=== PATIENT | male | born 1970 | race Caucasian/White ===

== ENCOUNTER 2020-11-21 16:26 | Inpatient (IN) | payer OTHER, MEDICAID, SELFPAY ==
[~2020-11-21] VITALS: Ht 170.2 cm; Wt 77.1 kg
--- NOTE | 2020-11-21 16:26 | NUR ---
pt [facility]EN [facility] bed [facility]
--- NOTE | 2020-11-21 16:30 | NUR ---
ASSUMED CARE OF A 50/M FROM EMS FOR A SYNCOPE AT HOME. PT IS A DIALYSIS PT (T, , ) PT REPORTS BUILD UP OF "FLUID IN HIS STOMACH" REPORTS PARACENTESIS BEING PERFORMED 2 DAYS AGO WITH APPROX 1 L OF FLUID REMOVED, BUT DENIES HX OF LIVER CHIRROSIS. PENDING MSE.
[2020-11-21 16:33] VITALS: BP 93/44
[2020-11-21] MEDS ORDERED: NACL 0.9% 1,000 ML IV ONE (16:50)
--- NOTE | 2020-11-21 16:50 | NUR ---
LABS DRAWN VIA IV PLACED BY PREHOSPITAL STAFF. GIVEN TO LAB.
--- NOTE | 2020-11-21 16:52 | NUR ---
[facility] [phone]
--- NOTE | 2020-11-21 17:00 | NUR ---
RAD AT BEDSIDE.
[2020-11-21 17:07] LABS: BASOPHILS # (AUTO) 0.1 K/uL (0.00-0.22); BASOPHILS % (AUTO) 1.4 % (0.0-2.0); EOSINOPHILS # (AUTO) 0.4 K/uL (0-0.4); EOSINOPHILS % (AUTO) 4.2 % (0.0-4.0); HEMATOCRIT 32.5 % (36-52); HEMOGLOBIN 9.9 g/dL (12.0-18.0); LYMPHOCYTES # (AUTO) 2.2 K/uL (2.0-11.5); LYMPHOCYTES % (AUTO) 25.7 % (20.5-51.1); MEAN CORPUSCULAR HEMOGLOBIN 29 pg (27-31); MEAN CORPUSCULAR HGB CONC 31 g/dL (33-37); MEAN CORPUSCULAR VOLUME 95.8 fL (80-94); MONOCYTES # (AUTO) 0.8 K/uL (0.8-1.0); MONOCYTES % (AUTO) 9.2 % (1.7-9.3); NEUTROPHILS # (AUTO) 5.1 K/uL (1.8-7.7); NEUTROPHILS % (AUTO) 59.5 % (42.2-75.2); PLATELET COUNT (AUTO) 359 K/uL (140-450); RED CELL DISTRIBUTION WIDTH 19.6 % (11.6-13.7); WHITE BLOOD COUNT (AUTO) 8.5 K/uL (4.8-10.8)
[2020-11-21 17:09] LABS: ANION GAP 15.3 (8-16); CARBON DIOXIDE 25.9 mmol/L (21-32); POTASSIUM 5.2 mmol/L (3.5-5.1)
[2020-11-21 17:13] LABS: CREATININE 5.1 mg/dL (0.6-1.3)
[2020-11-21 17:37] LABS: PHOSPHORUS 5.4 mg/dL (2.5-4.9)
[2020-11-21 17:38] LABS: TOTAL BILIRUBIN 0.4 mg/dL (0.0-1.0)
[2020-11-21] MEDS ORDERED: FUROSEMIDE 40 MG/4 ML VIAL IVP ONE (18:20)
--- NOTE | 2020-11-21 18:43 | NUR ---
PT UNABLE TO RECALL HOME MEDS -- CALL MADE TO FAMILY, FAMILY WILL BRING MEDS TOMORROW AM.
[2020-11-21] MEDS ORDERED: ASPIRIN 81 MG TAB.CHEW PO ONE (19:05)
--- NOTE | 2020-11-21 19:05 | NUR ---
DAUGHTER -- JENNIFER [phone]
--- NOTE | 2020-11-21 19:12 | NUR ---
REPORT GIVEN TO RASHAD YUN. ALL CARE TRANSFERED.
[2020-11-21] MEDS ORDERED: hePARIN / DEXT 5% PREMIX 250 ML IV PRN (19:30)
[2020-11-21] MEDS ORDERED: HEPARIN PER PHARMACY MC PRN ×2 (19:30)
[2020-11-21 19:47] LABS: PROTHROMBIN TIME 11.5 secs (10.8-13.4)
[2020-11-21] MEDS ORDERED: POTASSIUM CHLORIDE 10 MEQ TABER PO PRN (20:00)
[2020-11-21] MEDS ORDERED: ZOLPIDEM 5 MG TAB PO PRN (20:00)
[2020-11-21] MEDS ORDERED: ONDANSETRON 4 MG/2 ML VIAL IM/IVP PRN (20:00)
[2020-11-21] MEDS ORDERED: ACETAMINOPHEN 325 MG TAB PO PRN (20:00)
[2020-11-21] MEDS ORDERED: DOCUSATE SODIUM 100 MG GELCAP PO PRN (20:00)
[2020-11-21] MEDS ORDERED: HYDROcodone/APAP 7.5/325 MG 1 TAB PO PRN (20:00)
[2020-11-21] MEDS ORDERED: guaiFENesin DM 200/20 MG-10 ML 10 ML UDC PO PRN (20:00)
--- NOTE | 2020-11-21 20:40 | NUR ---
READY FOR ADMISSION. REPORT CALLED TO RASHAD KRAMER
--- NOTE | 2020-11-21 20:55 | NUR ---
Patient will be admitted to care of DR. ROLDAN. Will go to room 114 ATTACHED TO SOCIAL SERVICES DESIGNEE. Belongings list completed. Report to
[2020-11-21 21:03] LABS: CHOL/HDL RATIO 3.4 (1-4.5); FREE T4 (FREE THYROXINE) 0.97 ng/dL (0.76-1.46); THYROID STIMULATING HORMONE 9.04 uIU/mL (0.34-3.74)
[2020-11-21 21:15] VITALS: BP 85/70
--- NOTE | 2020-11-21 21:15 | NUR ---
RECEIVED PATIENT FROM ED RNJAMA AT APPROXIMATELY 5. PATIENT ARRIVED TO [facility] FLOOR VIA GURNEY/BED, ALERT AND ORIENTED X4 TO PERSON, PLACE, TIME AND EVENT. PATIENT ON NC 4LPM, DENIES SOB AND NO RESPIRATORY DISTRESS OBSERVED, OXYGEN SATURATION 100%. PATIENT HEART SOUNDS AUSCULTATED, S1/S2 HEARD, LUNG CLEAR EQUAL BILATERAL ,SLIGHTLY DIMINISHED IN THE BASES. NORMOACTIVE BOWEL SOUNDS AUSCULTATED IN ALL 4 QUADRANTS, NPO EXCEPT MEDICATION PER MD ORDER. PATIENT IV SITES INCLUDE RIGHT AC 20G AND RIGHT SIDE CHEST ODALIS CATH FOR DIALYSIS. PATIENT DIALYSIS DAYS ARE T, TH, AND SAT. NO IV DRIPS RUNNING AT TIME OF ARRIVAL. PATIENT ABLE TO USE BEDSIDE URINAL/RESTROOM NEEDS IN BED WITH RN ASSISTANCE. PATIENT OLIGURIC, STATED HE DOESN'T USUALLY URINATE TOO MUCH. PATIENT STATED HAVING REGULAR AND DAILY BOWEL MOVEMENTS. PATIENT SKINS NON INTACT, BILATERAL LOWER EXTREMITY LEG SWELLING, BILATERAL COMPLETE TOE AMPUTATIONS S/P SURGERY X1 DAY PER PATIENT, AND PATIENT STATED TO HAVING PARTIAL PENIAL AMPUTATION DUE TO GANGRENE IN REGARDS TO PREVIOUS MEDICAL HISTORY. PATIENT BEING OFFLOADED FROM PRESSURE POINTS WITH USE OF PILLOWS, FREQUENT REPOSITIONING AND PLACED INTO A POSITION OF COMFORT. BED LOCKED AND LOWERED INTO A POSITION OF SAFETY, EDUCATED BEAUTY CULTURE TEACHER LIGHT USAGE AND FAMILIARIZED WITH THE ROOM LAYOUT. PROMOTED A RESTFUL ENVIRONMENT WITH DECREASED STIMULI. WILL CONTINUE TO CLOSELY MONITOR, REASSESS OFTEN AND FREQUENTLY ROUND.
[2020-11-21] MEDS: hePARIN / DEXT 5% PREMIX 250 ML IV PRN (21:54)
[2020-11-21 22:00] VITALS: BP 80/54
--- NOTE | 2020-11-21 22:30 | NUR ---
PAGED DR. ROLDAN TO UPDATE WITH PATIENT STATUS, NOTIFIED OF DIALYSIS STATUS, STRICT I/O'S, LOW BP 80/54, INCREASED TROPONIN 8.5 AND SLIGHTLY INCREASED POTASSIUM 5.2. DR ROLDAN RETURNED PAGE, STATED TO GIVE 1 LITER BOLUS IVF AND BEGIN TRANSFER TO ICU STATUS. DR. ROLDAN ALSO GAVE ORDER FOR PRN LEVOPHED AND FOR THE ER DOCTOR TO START CENTRAL LINE. DR. ROLDAN ALSO ADVISED TO CONTACT DR. OSIEL ROBLES FOR FURTHER TELEPHONE CONSULT. DR. ROLDAN ALSO ADVISED DR. PIMENTEL IS THE AIR CONDITIONING TECHNICIAN ASSIGNED. WILL CARRY OUT ORDERS.
--- NOTE | 2020-11-21 22:40 | NUR ---
CHARGE NURSE AND VASCULAR SONOGRAPHER ADVISED OF PATIENT CONDITION/STATUS, ORDERS RECIEVED FROM MD'S AND LEVEL OF CARE INCREASE TO ICU STATUS PER DR. ROLDAN.
[2020-11-21 23:00] VITALS: BP 102/39
--- NOTE | 2020-11-21 23:00 | NUR ---
WOUND PICTURES TAKEN AND PLACED IN CHART, WOUND ASSESSMENT DOCUMENTED, SEE WOUND NOTES.
--- NOTE | 2020-11-21 23:10 | NUR ---
DR. OSIEL ROBLES CONTACTED REGARDING PATIENT CONDITION, GIVEN UPDATE ON STATUS AND ORDERS CURRENTLY RECEIVED BY DR. ROLDAN. MD STATED TO CHECK IF PATIENT CURRENTLY TAKING ANY CARDIAC MEDICATIONS SUCH MOLINA INHIBITORS OR BETA BLOCKERS, CHECKED WITH PATIENT AND DAUGHTER, BOTH DENY ANY CARDIAC MEDICATIONS BEING TAKEN AT HOME. PATIENT STATED HE ONLY TAKES NORCO FOR PAIN AT HOME, PER PATIENT LAST NORCO TAKEN AT HOME IN THE MORNING WITH BREAKFAST. DR. ROBLES GAVE NO NEW ORDERS AT THIS TIME AND UPDATED, SAID TO CONTINUE CURRENT THERAPIES IN PLACE FROM DR. ROLDAN'S ORDERS FOR THE PATIENT. WILL UPDATE MD WITH ANY CHANGES IN CONDITION.
--- NOTE | 2020-11-21 23:11 | NUR ---
DR. OSIEL ROBLES NOTIFIED OF TROPONIN 8.506, HEPARIN THERAPY CURRENTLY RUNNING AND ALL OTHER ORDERS PLACED BY DR. ROLDAN THUS FAR.
--- NOTE | 2020-11-21 23:15 | NUR ---
DR. VALDERRAMA ADVISED OF CENTRAL LINE ORDER/PLACEMENT PER DR. ROLDAN.
--- NOTE | 2020-11-21 23:35 | NUR ---
Spoke with ER MD Dr Marin for central line placement. Dr Marin stated that he will go to [facility] for central line placement
--- NOTE | 2020-11-21 23:41 | NUR ---
Texted Dr Guevara for ICU product safety engineer. Dr Guevara texted back for having Dr Padilla as ICU product safety engineer
--- NOTE | 2020-11-21 23:48 | NUR ---
Texted Dr Padilla for ICU canteen attendant consult. Dr Padilla texted back to text Dr Hodges because Dr Padilla is not oncall [facility]
--- NOTE | 2020-11-21 23:52 | NUR ---
Texted Dr Hodges regarding ICU model and mold maker consult. Dr Hodges stated that he will come in am because he stated that pt is stable at this time (BP 103/42, map 81, aaox4, 4L N/C)
[2020-11-22] VITALS (22 sets, daily range): BP systolic 90–160; BP diastolic 32–107
[2020-11-22] MEDS ORDERED: NOREPINEPHRINE 16 MG in DEXTROSE 5% 250 ML IV PRN (00:05)
[2020-11-22] MEDS ORDERED: NACL 0.9% 1,000 ML IV SCH (00:05)
--- NOTE | 2020-11-22 00:05 | NUR ---
Dr Tania EDWARDS MD came to insert central line, stated that pt does not need central line at this time because BP is103/42, map 81 after 500ml bolus per Dr Guevara order. Dr Marin stated just wait in am or unless pt is not stable tonight, he will insert central line. Also, Dr Marin stated that patient needs PICC line instead of central line in am
--- NOTE | 2020-11-22 01:15 | NUR ---
PATIENT RESTING A POSITION OF COMFORT, DENIES PAIN/DISCOMFORT WHEN ASKED, NO OBVIOUS SIGNS OF DISTRESS OBSERVED WHILE AT BEDSIDE, TOLERATING CURRENT THERAPIES IN PLACE WELL.. WILL REASSESS OFTEN, CLOSELY MONITOR AND FREQUENTLY ROUND.
--- NOTE | 2020-11-22 02:34 | NUR ---
PATIENT RESTING, ASLEEP, NO OBVIOUS SIGNS OF DISTRESS OBSERVED AT BEDSIDE. PATIENT TOLERATING CURRENT THERAPIES WELL. WILL CONTINUE TO REASSESS OFTEN, CLOSELY MONITOR AND FREQUENTLY ROUND.
--- NOTE | 2020-11-22 04:11 | NUR ---
WOUND CARE, DRESSINGS CHANGED, GOWN CHANGED, LINENS, REPOSITIONING, SAFETY CHECKS, AND HYGIENE PROVIDED. NO OBVIOUS SIGNS OF DISTRESS OBSERVED WHILE AT BEDSIDE. WILL CONTINUE TO REASSESS OFTEN, CLOSELY MONITOR AND FREQUENTLY ROUND.
--- NOTE | 2020-11-22 05:52 | NUR ---
Texted PICC RN ([phone]) for PICC insertion order
--- NOTE | 2020-11-22 06:02 | NUR ---
PATIENT ALERT IN THE BED, REPOSITIONED, NO COMPLAINTS OF PAIN, DENIES ANY DISCOMFORT WHEN ASKED. PATIENT CONTINUES TO TOLERATE THERAPIES WELL, NO SIGNS OF DISTRESS OBSERVED WHILE AT BEDSIDE, WILL CONTINUE TO REASSESS OFTEN, CLOSELY MONITOR AND FREQUENTLY ROUND.
[2020-11-22 06:54] LABS: ANION GAP 14.5 (8-16); CARBON DIOXIDE 24.6 mmol/L (21-32)
[2020-11-22 07:01] LABS: CREATININE 5.6 mg/dL (0.6-1.3); POTASSIUM 6.1 mmol/L (3.5-5.1)
--- NOTE | 2020-11-22 07:20 | NUR ---
RECEIVED PATIENT FROM [facility] AND REPORT FROM LENS BLOCKER NURSE. PATIENT ARRIVED IN [facility] BED, AWAKE AND ALERT, ABLE TO MAKE NEEDS KNOWN, DENIES CHEST PAIN. BREATHING EVEN AND UNLABORED ON 4L NC, NO SIGNS OF ACUTE DISTRESS NOTED. BLE WOUNDS FROM TOE AMPUTATIONS. R CHEST ODALIS CATHETER ACCESS, R AC 20G INFUSING HEPARIN DRIP @ 9000 UNITS/HR. MAKING LINE WORKER IN PLACE, SAFETY MEASURES IN PLACE.
--- NOTE | 2020-11-22 07:20 | NUR ---
PATIENT REPORT AND CARE ENDORSED TO INA SOLORZANO.
[2020-11-22 07:24] LABS: BASOPHILS # (AUTO) 0.1 K/uL (0.00-0.22); BASOPHILS % (AUTO) 1.4 % (0.0-2.0); EOSINOPHILS # (AUTO) 0.3 K/uL (0-0.4); EOSINOPHILS % (AUTO) 2.8 % (0.0-4.0); HEMATOCRIT 32.2 % (36-52); HEMOGLOBIN 9.9 g/dL (12.0-18.0); LYMPHOCYTES # (AUTO) 2.4 K/uL (2.0-11.5); LYMPHOCYTES % (AUTO) 26.4 % (20.5-51.1); MEAN CORPUSCULAR HEMOGLOBIN 29 pg (27-31); MEAN CORPUSCULAR HGB CONC 31 g/dL (33-37); MEAN CORPUSCULAR VOLUME 94.9 fL (80-94); MONOCYTES # (AUTO) 0.8 K/uL (0.8-1.0); MONOCYTES % (AUTO) 9.1 % (1.7-9.3); NEUTROPHILS # (AUTO) 5.5 K/uL (1.8-7.7); NEUTROPHILS % (AUTO) 60.3 % (42.2-75.2); PLATELET COUNT (AUTO) 324 K/uL (140-450); RED BLOOD CELL COUNT(AUTO) 3.39 MIL/uL (4.20-6.10); RED CELL DISTRIBUTION WIDTH 19.1 % (11.6-13.7); WHITE BLOOD COUNT (AUTO) 9.1 K/uL (4.8-10.8)
[2020-11-22] MEDS: ATORVASTATIN 80 MG TAB PO SCH (08:04)
[2020-11-22] MEDS: ECOTRIN 81 MG TABEC PO SCH (08:04)
[2020-11-22] MEDS: PANTOPRAZOLE 40 MG TABEC PO SCH (08:04)
--- NOTE | 2020-11-22 08:05 | NUR ---
ADMINISTERED SCHEDULED MEDS PER MD ORDER. MED EDUCATION PROVIDED, PATIENT VERBALIZES UNDERSTANDING.
--- NOTE | 2020-11-22 08:57 | NUR ---
PATIENT HAS BEEN SCREENED AND CATEGORIZED HIGH NUTRITION RISK. PATIENT WILL BE SEEN WITHIN 1-2 DAYS OF ADMISSION. 11/21/2020-11/22/[address]
[2020-11-22] MEDS ORDERED: CALCIUM GLUCONATE 10% 1,000 MG in NACL 0.9% 50 ML IV SCH (09:30)
--- NOTE | 2020-11-22 10:27 | NUR ---
P.T. NOTES HOLD P.T. EVAL, ELEV TROP=14.623 (11/22/20), =8.506 (11/21/20); FF UP WHEN ABLE.
--- NOTE | 2020-11-22 13:35 | NUR ---
FOLLOW UP CALL MADE TO PICC RN -- ELIAS TO UPDATED ICU WITH ANTICIPATED ETA FOR PICC INSERTION.
--- NOTE | 2020-11-22 13:49 | NUR ---
11/22/20 RD INITIAL ASSESSMENT COMPLETED PLEASE REFER TO NUTRITION ASSESSMENT UNDER CARE ACTIVITY FOR ESTIMATED NUTRITIONAL NEEDS. RD RECOMMENDATIONS: 1. CONTINUE NPO MEDICALLY APPROPRIATE. 2. IF/WHEN PT IS MEDICALLY STABLE TO START DIET, RECOMMEND RENAL DIET. 3. RD WILL F/U 2-3 DAYS; HIGH RISK. DORON RODRIGUEZ, RD
--- NOTE | 2020-11-22 19:30 | NUR ---
RECEIVED CARE AND REPORT FROM DAYSHIFT RN. PATIENT ALERT AND ORIENTED X4 TO PERSON, PLACE, TIME AND EVENT. PATIENT GCS 15, ABLE TO ANSWER ALL QUESTIONS APPROPRIATELY. PATIENT CURRENTLY ON RENAL DIET ORDERS PER MD. PATIENT HOB 30 DEGREES, ROOM AIR, OXYGEN SATURATION 98% ON THE MONITOR, DENIES SOB AND DENIES ANY DIFFICULTY BREATHING. PATIENT CONNECTED TO CONTINUOUS CARDIAC MONITORING AT BEDSIDE, NSR ON THE MONITOR, WILL CONTINUE TO CLOSELY MONITOR. PATIENT IV SITE INCLUDES RIGHT AC 20G. DRIPS CURRENTLY RUNNING INCLUDE HEPARIN RUNNING AT 1400 UNITS/HR. PATIENT DRY WEIGHT APPROXIMATELY 74.3 KG. PATIENT HAS A RIGHT CHEST ODALIS CATHETER IN PLACE FOR REGULAR DIALYSIS, PATIENT RECEIVES DIALYSIS T, , SAT. PATIENT HAD DIALYSIS TODAY, 2 L TOTAL REMOVED. PATIENT AMBULATORY WITH RN ASSISTANCE, ABLE TO USE BEDSIDE COMMODE. PATIENT OLIGURIC. PATIENT SKINS NON INTACT, LEFT AND RIGHT FOOT COMPLETE TOE AMPUTATIONS, RIGHT FOOT OPEN WOUND, LEFT FOOT CLOSED WOUND, ALL WOUNDS COVERED WITH CLEAN DRESSINGS. BED LOCKED AND LOWERED INTO A POSITION OF SAFETY, PATIENT ASSISTED WITH REPOSITIONING, AND PLACED INTO A POSITION OF COMFORT. WILL CONTINUE TO REASSESS OFTEN, CLOSELY MONITOR AND FREQUENTLY ROUND THROUGHOUT THE SHIFT.
--- NOTE | 2020-11-22 19:44 | NUR ---
PICC LINE NURSE AT BEDSIDE.
--- NOTE | 2020-11-22 19:51 | NUR ---
XRAY CALLED TO BEDSIDE, PER PICC LINE RN, TO CHECK PICC LINE PLACEMENT, AWAITING ARRIVAL.
--- NOTE | 2020-11-22 20:10 | NUR ---
PER PICC LINE RN, CANCEL XRAY TO BEDSIDE, XRAY CALLED.
--- NOTE | 2020-11-22 20:15 | NUR ---
PER ELIAS, PICC LINE RN, RIGHT UPPER ARM MIDLINE PLACED, INTACT, STATED OK TO USE.
--- NOTE | 2020-11-22 21:28 | NUR ---
PATIENT HAD 1 BM, SOFT, FORMED, BROWN AND MODERATE. RN ASSISTANCE AT BEDSIDE, CLEANED, DRIED. NO SIGNS OF DISTRESS OBSERVED WHILE AT BEDSIDE/ASSISTING PATIENT. WILL CONTINUE TO REASSESS OFTEN, CLOSELY MONITOR AND FREQUENTLY ROUND.
[2020-11-22] MEDS: hePARIN / DEXT 5% PREMIX 250 ML IV PRN (21:46)
--- NOTE | 2020-11-22 23:40 | NUR ---
MECHANICAL EXPERT SPOKE WITH DR. ROLDAN ON TELEPHONE, STATED TO MECHANICAL EXPERT THAT PATIENT CAN BE DOWNGRADED TO TELE STATUS.
--- NOTE | 2020-11-22 23:50 | NUR ---
LAB RESULT, PTT 48.9, NO CHANGE IN DRIP RATE PER PROTOCOL, PTT ORDERED Q6, WILL CONTINUE TO CLOSELY MONITOR AND FREQUENTLY ROUND.
[2020-11-23] VITALS (8 sets, daily range): BP systolic 103–133; BP diastolic 45–98
--- NOTE | 2020-11-23 01:12 | NUR ---
PATIENT RESTING, SLEEPING IN A POSITION OF COMFORT. ASSISTED INTO A POSITION OF COMFORT. PRESSURE POINTS OFFLOADED WITH USE OF PILLOWS. NO SIGNS OF DISTRESS OBSERVED. HOB 30 DEGREES, AIRWAY OPEN, CLEAR AND MAINTAINABLE. WILL CONTINUE TO REASSESS OFTEN, CLOSELY MONITOR AND FREQUENTLY ROUND.
--- NOTE | 2020-11-23 03:03 | NUR ---
PATIENT AWAKE, ALERT AND ORIENTED X4, ASSISTED INTO A POSITION OF COMFORT WITH REPOSITIONING, HR 78, OXYGEN SATURATION 98% ON ROOM AIR, DENIES SOB, DENIES DIFFICULTY BREATHING, DENIES ANY DISCOMFORT WHEN ASKED. PATIENT STATED HE IS FEELING FINE. AIRWAY REMAINS PATENT, OPEN, CLEAR AND MAINTAINABLE, HOB 30 DEGREES, NO OBVIOUS SIGNS OF DISTRESS OBSERVED WHILE AT BEDSIDE. PATIENT ASSISTED WITH HYGIENE AND COMFORT. WILL CONTINUE TO REASSESS OFTEN, CLOSELY MONITOR AND FREQUENTLY ROUND.
--- NOTE | 2020-11-23 05:08 | NUR ---
PATIENT OFFERED AND ASSISTED WITH MORNING CARE/HYGIENE AND ADL'S, RESTING IN A POSITION OF COMFORT, NO SIGNS OF DISTRESS OBSERVED WHILE AT BEDSIDE, HR 71 AND OXYGEN SATURATION 100%, AIRWAY PATENT, CLEAR AND MAINTAINABLE. WILL CONTINUE TO REASSESS OFTEN, CLOSELY MONITOR AND FREQUENTLY ROUND.
[2020-11-23 05:30] LABS: BASOPHILS # (AUTO) 0.1 K/uL (0.00-0.22); BASOPHILS % (AUTO) 1.4 % (0.0-2.0); EOSINOPHILS # (AUTO) 0.3 K/uL (0-0.4); EOSINOPHILS % (AUTO) 4.2 % (0.0-4.0); HEMATOCRIT 32.5 % (36-52); LYMPHOCYTES # (AUTO) 1.6 K/uL (2.0-11.5); LYMPHOCYTES % (AUTO) 20.2 % (20.5-51.1); MEAN CORPUSCULAR HEMOGLOBIN 30 pg (27-31); MEAN CORPUSCULAR HGB CONC 31 g/dL (33-37); MEAN CORPUSCULAR VOLUME 95.5 fL (80-94); MONOCYTES # (AUTO) 0.6 K/uL (0.8-1.0); MONOCYTES % (AUTO) 7.5 % (1.7-9.3); NEUTROPHILS # (AUTO) 5.5 K/uL (1.8-7.7); NEUTROPHILS % (AUTO) 66.7 % (42.2-75.2); PLATELET COUNT (AUTO) 380 K/uL (140-450); RED CELL DISTRIBUTION WIDTH 19.3 % (11.6-13.7); WHITE BLOOD COUNT (AUTO) 8.2 K/uL (4.8-10.8)
[2020-11-23 05:45] LABS: ANION GAP 12.5 (8-16); CARBON DIOXIDE 26.9 mmol/L (21-32); POTASSIUM 4.4 mmol/L (3.5-5.1)
[2020-11-23 06:00] LABS: CREATININE 4.7 mg/dL (0.6-1.3)
--- NOTE | 2020-11-23 06:15 | NUR ---
TRANSFERRED PATIENT TO TELE UNIT, PATIENT STABLE CONDITION, DENIES PAIN, DENIES SOB, DENIES ANY DISCOMFORT WHEN ASKED. AIRWAY OPEN, CLEAR, AND MAINTAINABLE. OXYGEN SATURATION 98% ON ROOM AIR, HR 82, ON THE MONITOR. VS STABLE, CARE ENDORSED TO WARRANTY ADMINISTRATOR.
--- NOTE | 2020-11-23 07:30 | NUR ---
RECEIVED BEDSIDE REPORT FROM NIGHT RN. PT AWAKE IN BED, HOB ELEVATED. AOX4, ABLE TO MAKE NEEDS KNOWN. CURRENTLY ON HEMODIALYSIS ORDERED. NO C/O PAIN, RESPIRATIONS ARE EVEN AND UNLABORED ON RA. SKIN WARM AND DRY TO TOUCH. ROSITA MIDLINE RUNNING HEPARIN 1400U/HR. RIGHT UPPER CHEST ODALIS CATH INTACT. PLAN OF CARE DISCUSSED. SAFETY MEASURES IN PLACE. BED IN LOW POSITION. WILL CONTINUE TO MONITOR
[2020-11-23 08:06] LABS: T4 (THYROXINE) 7.1 ug/dL (4.5-12.0)
[2020-11-23] MEDS ORDERED: VIT-B COMP/VIT-C/FOLIC ACID 1 TAB PO SCH (09:00)
[2020-11-23] MEDS: ATORVASTATIN 80 MG TAB PO SCH (09:07)
[2020-11-23] MEDS: PANTOPRAZOLE 40 MG TABEC PO SCH (09:07)
[2020-11-23] MEDS: ECOTRIN 81 MG TABEC PO SCH (09:07)
--- NOTE | 2020-11-23 09:45 | NUR ---
HD DONE. NO ADVERSE REACTIONS. VSS
--- NOTE | 2020-11-23 10:15 | NUR ---
PT DISCUSSED WITH DR ROLDAN AT BEDSIDE ABOUT GOING AMA. PER PT, HE WANTS TO GO AMA SO SEE HIS SICK FATHER. RISKS OF LEAVING THE HOSPITAL AND BENEFITS OF TREATMENT DISCUSSED BY DR ROLDAN. AMA FORM SIGNED BY PATIENT
--- NOTE | 2020-11-23 10:30 | NUR ---
MIDLINE REMOVED WITH LUMEN INTACT. ABD DRESSING CHANGED. ASSISTED PT TO PRIVATE VEHICLE VIA WHEEL CHAIR Addendum: 11/23/20 at 1054 by Tono Cantrell RN PICKED UP BY
--- NOTE | 2020-11-24 08:52 | NUR ---
Wound care consult not done, pt. discharged.
[2020-11-25 06:08] LABS: HEPATITIS A ANTIBODY IGM Negative (Negative); HEPATITIS B CORE AB TOTAL Negative (Negative); HEPATITIS B SURFACE ANTIBODY Non Reactive (.); HEPATITIS B SURFACE ANTIGEN Negative (Negative)
== END 2020-11-23 10:30 | disposition left against medical advice (07) | DRG 280 ==
LOC: MED 16:26 → MTU 19:36 → MIC 11-22 08:24 → MTU 11-23 07:46
PROVIDERS: ADMIT Family Medicine; ATTEND Family Medicine
PROC: 5A1D70Z Performance of Urinary Filtration, Intermittent, Less than 6 Hours Per Day (ICD-10-PCS; principal; 2020-11-22)
DX: I13.0 Hypertensive heart and chronic kidney disease with heart failure and stage 1 through stage 4 chronic kidney disease, or unspecified chronic kidney disease (principal); I21.4 Non-ST elevation (NSTEMI) myocardial infarction; J96.01 Acute respiratory failure with hypoxia; N18.6 End stage renal disease; I50.43 Acute on chronic combined systolic (congestive) and diastolic (congestive) heart failure; R57.0 Cardiogenic shock; G93.41 Metabolic encephalopathy; N17.0 Acute kidney failure with tubular necrosis; E43 Unspecified severe protein-calorie malnutrition; K76.6 Portal hypertension; I42.9 Cardiomyopathy, unspecified; E11.22 Type 2 diabetes mellitus with diabetic chronic kidney disease; E11.51 Type 2 diabetes mellitus with diabetic peripheral angiopathy without gangrene; E87.5 Hyperkalemia; K70.30 Alcoholic cirrhosis of liver without ascites; K21.9 Gastro-esophageal reflux disease without esophagitis; Z53.29 Procedure and treatment not carried out because of patient's decision for other reasons; Z20.822 Contact with and (suspected) exposure to COVID-19; D63.8 Anemia in other chronic diseases classified elsewhere; E83.39 Other disorders of phosphorus metabolism; E02 Subclinical iodine-deficiency hypothyroidism; Z82.49 Family history of ischemic heart disease and other diseases of the circulatory system; Z99.2 Dependence on renal dialysis; Z89.422 Acquired absence of other left toe(s); Z89.421 Acquired absence of other right toe(s)
CPT/HCPCS: 36415; 70450; 71045; 76705; 80048; 80053; 82140; 82150; 83036; 83690; 83735; 83880; 84100; 84436; 84439; 84443; 84479; 84484; 85025; 85610; 85730; 86704; 86706; 86708; 86709; 86803; 87081; 87340; 93005; 93880; 96374; 99291; J0610; J1644; J1940; J3490; J7060